=== PATIENT | female | born 1980 | race Caucasian/White ===

== ENCOUNTER 2017-06-16 04:13 | Inpatient (IN) | payer MEDICAID ==
[~2017-06-16] VITALS: Ht 157.5 cm; Wt 75.0 kg
[2017-06-16] VITALS (83 sets, daily range): BP systolic 97–137; BP diastolic 54–92; PULSE 75–138; RESP 18–20; TEMP 97.6–98.6; O2SAT 98–100
[~2017-06-16 04:13] MED LIST: Z.0.NO CURRENT MEDS
[2017-06-16] MEDS ORDERED: SODIUM CHLOR 0.9% 1000 ML INJ 1,000 ML IV ONE (04:30)
[2017-06-16 04:48] LABS: BASOPHIL # 0.2 TH/MM3 (0-0.2); BASOPHIL % 1.9 % (0.0-2.0); EOSINOPHIL % 0.1 % (0.0-4.0); HEMATOCRIT 39.2 % (35.0-46.0); HEMOGLOBIN 13.3 GM/DL (11.6-15.3); LYMPH % 18.2 % (9.0-44.0); MEAN CELL VOLUME 91.9 FL (80.0-100.0); MEAN CORPUSCULAR HEMOGLOBIN 31.2 PG (27.0-34.0); MEAN PLATELET VOLUME 8.6 FL (7.0-11.0); MONOCYTE # 0.6 TH/MM3 (0-0.9); NEUT % 73.8 % (16.0-70.0); PLATELET COUNT 248 TH/MM3 (150-450); RED BLOOD COUNT 4.26 MIL/MM3 (4.00-5.30); RED CELL DISTRIBUTION WIDTH 15.1 % (11.6-17.2); WHITE BLOOD COUNT 10.8 TH/MM3 (4.0-11.0)
[2017-06-16 05:03] LABS: BICARBONATE 19.3 MEQ/L (21.0-32.0); CALCIUM 8.4 MG/DL (8.5-10.1)
--- NOTE | 2017-06-16 05:06 | PD ---
HPI Chief Complaint: Related Problem Time Seen by Provider: 04:25 Travel History International Travel<30 days: No Contact w/Intl Traveler<30days: No Traveled to known affect area: No History of Present Illness HPI 36-year-old female presents to the emergency department for complaint of contractions and bloody show. Patient states that she has not noticed any fluid leak. Patient states that she is 39 weeks with due date 06/19/17. Patient is under the care of Mayra AVILEZ at [facility]. Patient is 4 para 2 AB 1. Patient reports she is O+. Patient has no known allergies and only takes vitamins. Patient states she was awakened at 3 AM with discomfort and shortly thereafter had a contraction. Patient states her contractions now are occurring about every 1-2 minutes. Patient received reports she was seen by her [employer] SUPERVISOR 1 week ago at which time reportedly she was 2 cm dilated. Patient denies any chronic medical problems. Patient denies substance use alcohol use and is taken no medications this evening. Patient has been n.p.o. for approximately 5 hours. Last period was August 2016. [facility] Past Medical History Narrative Medical [id number]; no tobacco; nursing notes reviewed Diminished Hearing: No ?: LMP: 08/31/16 : 2 Para: 1 Miscarriage: 1 Past Surgical History Other Surgery: Yes (BREAST AUGMENTATION) Social History Alcohol Use: Yes (ONCE A WEEK) Tobacco Use: No Substance Use: No Allergies-Medications (Allergen,Severity, Reaction): Coded Allergies: No Known Allergies (Verified Adverse Reaction, Unknown, 06/16/17) PT REFUSES TO ANSWER QUESTIONS ABOUT ALLERGIES Reported Meds & Prescriptions Reported Meds & Active Scripts Active No Active Prescriptions or Reported Medications Review of Systems Except as stated in HPI: all other systems reviewed are Neg Physical Exam Narrative GENERAL: Well-developed well-nourished female in no acute distress no respiratory distress SKIN: Warm and dry. HEAD: Normocephalic. EYES: No scleral icterus. No injection or drainage. NECK: Supple, trachea midline. No JVD or lymphadenopathy. CARDIOVASCULAR: Regular rate and rhythm without murmurs, gallops, or rubs. RESPIRATORY: Breath sounds equal bilaterally. No accessory muscle use. GASTROINTESTINAL: Abdomen soft, non-tender, gravid uterus fundal height 2 fingerbreadths below the diaphragm. Pelvic exam: Normal external exam no redness induration no bimanual exam with sterile gloves dilated 4 cm; FHT: 156 MUSCULOSKELETAL: No cyanosis, or edema. BACK: Nontender without obvious deformity. No CVA tenderness. Data Data Last Documented VS Vital Signs Date Time Temp Pulse Resp B/P (MAP) Pulse Ox O2 Delivery O2 Flow Rate FiO2 06/16/17 04:21 133 18 129/87 (101) 100 Orders Orders Complete Blood Count With Diff (06/16/17 04:25) Basic Metabolic Panel (Bmp) (06/16/17 04:25) Type And Screen (06/16/17 04:25) NPO (06/16/17 04:25) ^ Saline Lock (06/16/17 04:25) Sodium Chlor 0.9% 1000 Ml Inj (Ns 1000 M (06/16/17 04:30) Labs Laboratory Tests Test 06/16/17 04:30 White Blood Count 10.8 TH/MM3 Red Blood Count 4.26 MIL/MM3 Hemoglobin 13.3 GM/DL Hematocrit 39.2 % Mean Corpuscular Volume 91.9 FL Mean Corpuscular Hemoglobin 31.2 PG Mean Corpuscular Hemoglobin Concent 34.0 % Red Cell Distribution Width 15.1 % Platelet Count 248 TH/MM3 Mean Platelet Volume 8.6 FL Neutrophils (%) (Auto) 73.8 % Lymphocytes (%) (Auto) 18.2 % Monocytes (%) (Auto) 6.0 % Eosinophils (%) (Auto) 0.1 % Basophils (%) (Auto) 1.9 % Neutrophils # (Auto) 8.0 TH/MM3 Lymphocytes # (Auto) 2.0 TH/MM3 Monocytes # (Auto) 0.6 TH/MM3 Eosinophils # (Auto) 0.0 TH/MM3 Basophils # (Auto) 0.2 TH/MM3 CBC Comment DIFF FINAL Differential Comment Blood Urea Nitrogen 8 MG/DL Random Glucose 92 MG/DL Calcium Level 8.4 MG/DL Sodium Level 136 MEQ/L Potassium Level 3.7 MEQ/L Chloride Level 106 MEQ/L Carbon Dioxide Level 19.3 MEQ/L Anion Gap 11 MEQ/L MDM Medical Decision Making Medical Screen Exam Complete: Yes Emergency Medical Condition: Yes Medical Record Reviewed: Yes Differential Diagnosis Labor, impending delivery Narrative Course Patient placed on monitor IV access obtained specimens collected and sent for resulting call placed to OB ED Dr. Cho who requests patient be transferred emergently from [facility] directly to [facility] labor and delivery EMS called @ 4:42 water broke; Dr Cho notified; reassessed, dilated 5 cm, contractions q 2 minutes @ 4:51 EMS at bedside @ 4:54 patient exiting with EMS; contractions remain about every 2 minutes; patient denies urge to push; OB notified in route. Physician Communication Physician Communication call placed to Dr Cho Diagnosis Primary Impression: Qualified Codes: Z3A.39 - 39 weeks gestation of Additional Impression: Labor without complication Scripts No Active Prescriptions or Reported Meds Charlotte River MD Jun 16, 2017 05:06
[2017-06-16 05:07] LABS: CREATININE 0.72 MG/DL (0.50-1.00)
[2017-06-16] MEDS ORDERED: fentaNYL 2MCG-BUPIV 0.125% INJ 100 ML ONE (05:32)
[2017-06-16] MEDS ORDERED: ePHEDrine/NS 25 MG/5 ML SYRINGE ONE (05:32)
[2017-06-16] MEDS ORDERED: PREN29TA PO (05:42)
[2017-06-16] MEDS ORDERED: NS 500 ML BOLUS IV PRN (06:15)
[2017-06-16] MEDS ORDERED: NS 1000 ML IV PRN (06:15)
[2017-06-16] MEDS ORDERED: LACTATED RINGER'S 1000 ML IV SCH (06:15)
[2017-06-16] MEDS ORDERED: LACTATED RINGER'S 1000 ML BOLUS IV PRN (06:15)
--- NOTE | 2017-06-16 06:56 | HHI.HP ---
History & Physical H&P HPI Chief Complaint ctxs Date Seen: Jun 16, 2017 Time Seen: 06:44 Travel History International Travel<30 Days: No Contact w/Intl Traveler<30Days: No Known Affected Area: No History of Present Illness HPI pt is a 36 y/o @ 39 4/7 weeks present as a transfer from [place] 2/2 ctxs and srom. pt. states began having ctxs earlier in am and presented to ed. at time pt. states ctxs were 1-2 min apart and getting stronger. when present to ed cervix was 4 cm. pt. have srom at time of tranfer. when present to [place], pt. w/ painful ctxs received epidural and cervix by nursing . Weeks Gestation: 39 Para: 2 : 4 History (Limited) History Past Medical History Medical History: Denies Significant Hx Obstetric History Obstetric History , x 2, 1 sab Past Surgical History Surgical History: No Previous Surgery Family History Family History: Negative Social History Alcohol Use: No Tobacco Use: No Substance Abuse: No Allergies-Medications Allergies-Medications (Allergen,Severity, Reaction): Coded Allergies: No Known Allergies (Verified Allergy, Unknown, 06/16/17) PT REFUSES TO ANSWER QUESTIONS ABOUT ALLERGIES Home Meds Reported Medications Vit-Iron Carbonyl ( Plus Iron 29-1 mg) 29 Mg Iron-1 Mg Tab, 1 TAB PO DAILY for Nutritional Supplement, #30 TAB 0 Refills 06/16/17 ROS Review of Systems Except as stated in HPI: all other systems reviewed are Neg Physical Exam Physical Exam Vital Signs Date Time Temp Pulse Resp B/P (MAP) Pulse Ox O2 Delivery O2 Flow Rate FiO2 06/16/17 06:05 126/76 (93) 06/16/17 05:55 122/68 (86) 06/16/17 05:44 126/88 (101) 06/16/17 04:50 06/16/17 04:46 115 20 124/86 (99) 98 Nasal Cannula 2.00 06/16/17 04:21 133 18 129/87 (101) 100 06/16/17 04:15 116 18 Narrative GENERAL: Well-nourished, well-developed patient. SKIN: Warm and dry. HEAD: Normocephalic and atraumatic. EYES: No scleral icterus. No injection or drainage. ENT: No nasal drainage noted. Mucous membranes pink. Airway patent. NECK: Supple, trachea midline. No JVD. CARDIOVASCULAR: Regular rate and rhythm without murmurs, gallops, or rubs. RESPIRATORY: Breath sounds equal bilaterally. No accessory muscle use. ABDOMEN/GI: Abdomen soft, non-tender, bowel sounds present, no rebound, no guarding Gravid GENITOURINARY: External Genitalia: intact and normal in appearance Cervix: ant Dilatation: 8 Effacement: 90 Station: 0 Presentation: cephalic Membranes: ruptured Uterine Contractions: q2 min FHT's: Category: 1 Reactive: + Variability: mod EXTREMITIES: No cyanosis or edema. BACK: Nontender without obvious deformity. No CVA tenderness. NEUROLOGICAL: Awake and alert. Motor and sensory grossly within normal limits. Five out of 5 muscle strength in all muscle groups. Normal speech. Data Data Data Vital Signs Reviewed: Yes Orders Orders Complete Blood Count With Diff (06/16/17 04:25) Basic Metabolic Panel (Bmp) (06/16/17 04:25) Type And Screen (06/16/17 04:25) NPO (06/16/17 04:25) ^ Saline Lock (06/16/17 04:25) Sodium Chlor 0.9% 1000 Ml Inj (Ns 1000 M (06/16/17 04:30) Ob (2e) Additional Admit Info (06/16/17 05:25) Fentanyl 2mcg-Bupiv 0.125% Inj (Fentanyl (06/16/17 05:32) Ephedrine/Ns 25 Mg/5 Ml Syr (Ephedrine/N (06/16/17 05:32) ^ Place On Chart (06/16/17 ) ^ Medication Indications (06/16/17 ) Consent (06/16/17 ) ^ No Systemic Narcotics (06/16/17 ) ^ Call Anesthesiologist (06/16/17 ) ^ Discontinue Epidural Cathete (06/16/17 ) Anticoagulant Alert (06/16/17 ) ^ Epidural Alert (06/16/17 ) Admit To Inpatient (06/16/17 ) Vital Signs (Adult) .Per protocol (06/16/17 06:07) Heart (06/16/17 06:07) Amnioinfusion (06/16/17 06:07) Urinary Catheter Management .ONCE (06/16/17 06:07) Diet Npo (06/16/17 Breakfast) Urinalysis - C+S If Indicated (06/16/17 06:07) Ob/Psych Drug Screen, Urine (06/16/17 06:07) Resp Oxygen Non Rebreathe Mask (06/16/17 ) ^ Epidural / Intrathecal Infus (06/16/17 06:07) Lactated Ringer's 1000 Ml Inj (Lr 1000 M (06/16/17 06:15) Lactated Ringer's 1000 Ml Inj (Lr 1000 M (06/16/17 06:15) Sodium Chlorid 0.9% 500 Ml Inj (Ns 500 M (06/16/17 06:15) Sodium Chlor 0.9% 1000 Ml Inj (Ns 1000 M (06/16/17 06:15) Group B Strep: Negative Labs Laboratory Tests Test 06/16/17 04:30 White Blood Count 10.8 Red Blood Count 4.26 Hemoglobin 13.3 Hematocrit 39.2 Mean Corpuscular Volume 91.9 Mean Corpuscular Hemoglobin 31.2 Mean Corpuscular Hemoglobin Concent 34.0 Red Cell Distribution Width 15.1 Platelet Count 248 Mean Platelet Volume 8.6 Neutrophils (%) (Auto) 73.8 Lymphocytes (%) (Auto) 18.2 Monocytes (%) (Auto) 6.0 Eosinophils (%) (Auto) 0.1 Basophils (%) (Auto) 1.9 Neutrophils # (Auto) 8.0 Lymphocytes # (Auto) 2.0 Monocytes # (Auto) 0.6 Eosinophils # (Auto) 0.0 Basophils # (Auto) 0.2 CBC Comment DIFF FINAL Differential Comment Blood Urea Nitrogen 8 Creatinine 0.72 Random Glucose 92 Calcium Level 8.4 Sodium Level 136 Potassium Level 3.7 Chloride Level 106 Carbon Dioxide Level 19.3 Anion Gap 11 Estimat Glomerular Filtration Rate 91 MDM MDM Medical Record Reviewed: Yes Plan pt. in active labor. pt. to be admitted. s/p epidural. expect . fht reassuring. Diagnosis Diagnosis: Primary Impression: Qualified Codes: Z3A.39 - 39 weeks gestation of Additional Impression: Labor without complication Alon Cho Jr., MD Jun 16, 2017 06:56
[2017-06-16] MEDS ORDERED: OXYTOCIN 30 UNITS-500ML PREMIX 500 ML ONE (07:17)
[2017-06-16 07:19] LABS: BILIRUBIN, URINE NEG (NEG); BLOOD, URINE MOD (NEG); GLUCOSE,URINE NEG (NEG); KETONE, URINE 150 mg/dL (NEG); MUCUS URINE FEW /lpf (OCC); NITRITE,URINE NEG (NEG); SQUAMOUS EPITHELIAL CELL URINE 3 /hpf (0-5); URINE COLOR YELLOW (YELLW/STRAW); URINE LEUKOCYTE ESTERASE TRACE (NEG)
[2017-06-16] MEDS ORDERED: DO NOT ADMINISTER ANTICOAGULANTS PRN (08:30)
[2017-06-16] MEDS ORDERED: NO SYSTEM NARCOTICS PRN (08:30)
[2017-06-16] MEDS ORDERED: ePHEDrine/NS 25 MG/5 ML SYRINGE IV PUSH PRN (08:30)
[2017-06-16] MEDS ORDERED: fentaNYL 2MCG-BUPIV 0.125% 100 ML EPIDURAL SCH (08:30)
[2017-06-16] MEDS ORDERED: OXYTOCIN 30 UNITS-500ML PREMIX 500 ML IV PRN (08:45)
--- NOTE | 2017-06-16 08:53 | PD.LABORPN ---
Subjective Subjective Ms Diehl cervical check at 8:30AM with 8cm/90%/-1 station; SROM at 04:45AM, clear fluid. FHT reassuring at 135, moderate, variable, no decels; mom is comfortable Objective Vital Signs Vital Signs Date Time Temp Pulse Resp B/P (MAP) Pulse Ox O2 Delivery O2 Flow Rate FiO2 06/16/17 08:45 92 06/16/17 08:40 93 06/16/17 08:35 91 06/16/17 08:30 95 06/16/17 08:30 97 122/86 (98) 06/16/17 08:25 83 06/16/17 08:20 89 06/16/17 08:15 84 06/16/17 08:10 85 06/16/17 08:05 92 06/16/17 08:00 85 18 113/74 (87) 06/16/17 08:00 83 06/16/17 07:55 99 06/16/17 07:50 103 06/16/17 07:45 90 06/16/17 07:45 90 111/74 (86) 06/16/17 07:40 87 06/16/17 07:35 87 06/16/17 07:30 87 06/16/17 07:30 91 112/82 (92) 06/16/17 07:25 90 06/16/17 07:20 79 06/16/17 07:16 102 114/67 (83) 06/16/17 07:15 103 06/16/17 07:10 92 06/16/17 07:05 97 06/16/17 07:00 89 125/84 (98) 06/16/17 07:00 94 06/16/17 06:59 97.6 18 06/16/17 06:55 87 06/16/17 06:50 102 06/16/17 06:45 95 123/78 (93) 06/16/17 06:45 95 06/16/17 06:40 118 06/16/17 06:40 113 110/86 (94) 06/16/17 06:36 101 97/54 (68) 06/16/17 06:35 94 06/16/17 06:30 127 06/16/17 06:30 122 124/92 (103) 06/16/17 06:25 138 06/16/17 06:25 99 121/85 (97) 06/16/17 06:20 129/90 (103) 06/16/17 06:20 103 06/16/17 06:20 89 06/16/17 06:15 113 06/16/17 06:15 102 06/16/17 06:15 137/90 (106) 06/16/17 06:10 100 129/79 (96) 06/16/17 06:10 102 06/16/17 06:05 108 06/16/17 06:05 126/76 (93) 06/16/17 06:05 105 06/16/17 06:00 106 06/16/17 06:00 101 124/68 (86) 06/16/17 05:55 122/68 (86) 06/16/17 05:44 126/88 (101) 06/16/17 04:50 06/16/17 04:46 115 20 124/86 (99) 98 Nasal Cannula 2.00 06/16/17 04:21 133 18 129/87 (101) 100 06/16/17 04:15 116 18 Objective Pelvic Exam: Cervix: open Dilatation: 8cm Effacement: 90% Station: -1 Presentation: vertex Membranes: SROM 0445AM Uterine Contractions: regular 2-3 mins FHT's: Category: 1 Baseline: 135 Reactive: yes Variability: moderate Decels: none Weeks Gestation: 39 Gest Age Assessed Date: Jun 16, 2017 Gest Age Assessed Time: 08:30 Pt started active labor?: Yes Active labor start date: Jun 16, 2017 Active labor start time: 04:45 Medical induction of labor?: No Artificial rupture of membrane: No Assessment/Plan Assessment and Plan 36YO at 39 4/7 weeks presents in active labor, SROM w/clear fluid at 0445AM on 06/16/17; now 8cm/90%/-1 with little progression since epidural placement. Will start pitocin per protocol. FHT 135, variable, moderate, no decels 1. Active labor anticipating -Epidural in place with pain controlled -Start Pitocin @ 2ml/hr, increase 2ml q30min per protocol -Repeat NST q2h Dw Lalito Levy MD R1 Jun 16, 2017 08:53
--- NOTE | 2017-06-16 12:08 | PD.LABORPN ---
Subjective Subjective Ms Fazal cervical check at 11:45AM with 9cm/90%/0station; SROM at 04:45AM, bloody fluid. FHT reassuring at 140, moderate, variable, one late decel when lying on back with plastic push, then one variable decel after; mom repositioned on hands and knees; mom is comfortable Objective Vital Signs Vital Signs Date Time Temp Pulse Resp B/P (MAP) Pulse Ox O2 Delivery O2 Flow Rate FiO2 06/16/17 11:23 98.6 06/16/17 11:19 18 06/16/17 11:19 78 101/57 (72) 06/16/17 10:45 75 06/16/17 10:40 104 06/16/17 10:35 87 06/16/17 10:30 85 06/16/17 10:25 86 06/16/17 10:22 81 18 122/68 (86) 06/16/17 10:20 86 06/16/17 10:15 86 06/16/17 10:10 93 06/16/17 10:05 88 06/16/17 10:00 89 06/16/17 09:55 85 06/16/17 09:50 92 06/16/17 09:45 88 06/16/17 09:40 88 18 115/71 (86) 06/16/17 09:40 82 06/16/17 09:35 94 06/16/17 09:30 88 06/16/17 09:25 105 06/16/17 09:20 93 06/16/17 09:15 87 06/16/17 09:10 92 06/16/17 09:09 95 120/74 (89) 06/16/17 09:05 91 06/16/17 09:00 93 06/16/17 08:55 94 06/16/17 08:53 93 127/80 (96) 06/16/17 08:53 98.0 18 06/16/17 08:50 85 06/16/17 08:45 92 06/16/17 08:40 93 06/16/17 08:35 91 06/16/17 08:30 95 06/16/17 08:30 97 122/86 (98) 06/16/17 08:25 83 06/16/17 08:20 89 06/16/17 08:15 84 06/16/17 08:10 85 06/16/17 08:05 92 06/16/17 08:00 85 18 113/74 (87) 06/16/17 08:00 83 06/16/17 07:55 99 06/16/17 07:50 103 06/16/17 07:45 90 06/16/17 07:45 90 111/74 (86) 06/16/17 07:40 87 06/16/17 07:35 87 06/16/17 07:30 87 06/16/17 07:30 91 112/82 (92) 06/16/17 07:25 90 06/16/17 07:20 79 06/16/17 07:16 102 114/67 (83) 06/16/17 07:15 103 06/16/17 07:10 92 06/16/17 07:05 97 06/16/17 07:00 89 125/84 (98) 06/16/17 07:00 94 06/16/17 06:59 97.6 18 06/16/17 06:55 87 06/16/17 06:50 102 06/16/17 06:45 95 123/78 (93) 06/16/17 06:45 95 06/16/17 06:40 118 06/16/17 06:40 113 110/86 (94) 06/16/17 06:36 101 97/54 (68) 06/16/17 06:35 94 06/16/17 06:30 127 06/16/17 06:30 122 124/92 (103) 06/16/17 06:25 138 06/16/17 06:25 99 121/85 (97) 06/16/17 06:20 129/90 (103) 06/16/17 06:20 103 06/16/17 06:20 89 06/16/17 06:15 113 06/16/17 06:15 102 06/16/17 06:15 137/90 (106) 06/16/17 06:10 100 129/79 (96) 06/16/17 06:10 102 06/16/17 06:05 108 06/16/17 06:05 126/76 (93) 06/16/17 06:05 105 06/16/17 06:00 106 06/16/17 06:00 101 124/68 (86) 06/16/17 05:55 122/68 (86) 06/16/17 05:44 126/88 (101) 06/16/17 04:50 06/16/17 04:46 115 20 124/86 (99) 98 Nasal Cannula 2.00 06/16/17 04:21 133 18 129/87 (101) 100 06/16/17 04:15 116 18 Objective Pelvic Exam: Cervix: open Dilatation: 9cm Effacement: 90% Station: 0 Presentation: vertex Membranes: SROM 0445AM Uterine Contractions: regular 2-3 mins FHT's: Category: 1 Baseline: 140 Reactive: yes Variability: moderate Decels: one late during plastic push in [place] maneuver, followed by one variable Weeks Gestation: 39 Gest Age Assessed Date: Jun 16, 2017 Gest Age Assessed Time: 08:30 Pt started active labor?: Yes Active labor start date: Jun 16, 2017 Active labor start time: 04:45 Medical induction of labor?: No Artificial rupture of membrane: No Assessment/Plan Assessment and Plan 36YO at 39 4/7 weeks presents in active labor, SROM w/clear fluid at 0445AM on 06/16/17; now 9cm/90%/0 on 3ml/hr pitocin. FHT 140, variable, moderate, one late decel during plastic push in [place] followed by one variable decel; mother placed on hands and knees 1. Active labor anticipating -Epidural in place with pain controlled -Pressure cath placed 10:00 -Pitocin @ 3ml/hr -Monitor toco closely -Repeat NST q2h Seen with Lalito Edward MD R1 Jun 16, 2017 12:08
[2017-06-16] MEDS ORDERED: SODIUM CHLORIDE 0.9% FLUSH 10 ML FLUSH IV FLUSH PRN (13:15)
[2017-06-16] MEDS ORDERED: OXYTOCIN 30 UNITS-500ML PREMIX 500 ML IV SCH (13:15)
[2017-06-16] MEDS ORDERED: ALUMINUM/MAGNESIUM/SIMETH 30 ML CUP PO PRN (13:15)
[2017-06-16] MEDS ORDERED: ONDANSETRON ODT 4 MG TAB PO PRN (13:15)
[2017-06-16] MEDS ORDERED: ACETAMINOPHEN 325 MG TAB PO PRN (13:15)
[2017-06-16] MEDS ORDERED: ZOLPIDEM TARTRATE 5 MG TAB PO PRN (13:15)
--- NOTE | 2017-06-16 13:26 | PD.OB.DELI ---
Weeks gestation: 39 Gest age assessed date: Jun 16, 2017 Gest age assessed time: 08:30 Pt started active labor?: Yes Active labor start date: Jun 16, 2017 Active labor start time: 04:45 Medical induction of labor?: No Artificial rupture of membrane: No Anesthesia: Epidural Episiotomy: None Vaginal Delivery: Normal, Spontaneous Presentation: Occiput anterior Nuchal Cord: x1 Delayed cord clamping (45 sec): Yes Infant: Male, Single Delivery date: Jun 16, 2017 Delivery time: 12:49 One Minute : 8 Five Minute : 9 Placenta: Spontaneous delivery, Intact Laceration: Perineal laceration, 2 deg Repair: Chromic running Estimated blood loss: 200cc Additional Information Dr Wells supervised and Dr Izaguirre performed delivery and laceration repair. Lalito Izaguirre MD R1 Jun 16, 2017 13:26
[2017-06-16] MEDS ORDERED: DIPHTH/TETANUS/ACEL PERTUSSIS (BOOSTER) 0.5 ML VIAL/PFS IM ONE (16:00)
[2017-06-16] MEDS ORDERED: MEASLES, MUMPS, RUBELLA VACCINE 0.5 ML VIAL SQ ONE (16:00)
[2017-06-16] MEDS: DOCUSATE SODIUM 50 MG/SENNA 8.6 MG TAB PO PRN (20:08)
[2017-06-16] MEDS: WITCH HAZEL 50%/GLYCERIN 12.5% 40 PAD JAR TOPICAL PRN (20:08)
[2017-06-16] MEDS: IBUPROFEN 800 MG TAB PO PRN (20:08)
[2017-06-16] MEDS: BENZOCAINE 20% TOPICAL SPRAY 60 ML CAN TOPICAL PRN (20:08)
[2017-06-16] MEDS ORDERED: SODIUM CHLORIDE 0.9% FLUSH 10 ML FLUSH IV FLUSH SCH (21:00)
--- NOTE | 2017-06-17 07:30 | HHI.OB ---
Subjective Post Day: 1 Remarks Ms Diehl had no acute events overnight. She was up until 3 AM but slept well after that. Pain is controlled on Motrin and is worsened when she stands. Ambulating w/o dizziness. Tolerating PO w/o w/o nausea. Voiding and stooling. Lochia is the same as a period. Weighing her options about contraception. Objective Vitals/I&O Vital Signs Date Time Temp Pulse Resp B/P (MAP) Pulse Ox O2 Delivery O2 Flow Rate FiO2 06/16/17 14:15 18 06/16/17 14:01 93 113/63 (80) 06/16/17 14:00 18 06/16/17 13:45 82 118/70 (86) 06/16/17 13:41 98.3 18 06/16/17 13:31 91 115/73 (87) 06/16/17 13:18 95 123/74 (90) 06/16/17 13:18 18 06/16/17 12:20 88 06/16/17 12:15 88 06/16/17 12:10 100 06/16/17 12:05 95 06/16/17 12:00 18 06/16/17 11:59 91 111/74 (86) 06/16/17 11:23 98.6 06/16/17 11:19 18 06/16/17 11:19 78 101/57 (72) 06/16/17 10:45 75 06/16/17 10:40 104 06/16/17 10:35 87 06/16/17 10:30 85 06/16/17 10:25 86 06/16/17 10:22 81 18 122/68 (86) 06/16/17 10:20 86 06/16/17 10:15 86 06/16/17 10:10 93 06/16/17 10:05 88 06/16/17 10:00 89 06/16/17 09:55 85 06/16/17 09:50 92 06/16/17 09:45 88 06/16/17 09:40 88 18 115/71 (86) 06/16/17 09:40 82 06/16/17 09:35 94 06/16/17 09:30 88 06/16/17 09:25 105 06/16/17 09:20 93 06/16/17 09:15 87 06/16/17 09:10 92 06/16/17 09:09 95 120/74 (89) 06/16/17 09:05 91 06/16/17 09:00 93 06/16/17 08:55 94 06/16/17 08:53 93 127/80 (96) 06/16/17 08:53 98.0 18 06/16/17 08:50 85 06/16/17 08:45 92 06/16/17 08:40 93 06/16/17 08:35 91 06/16/17 08:30 95 06/16/17 08:30 97 122/86 (98) 06/16/17 08:25 83 06/16/17 08:20 89 06/16/17 08:15 84 06/16/17 08:10 85 06/16/17 08:05 92 06/16/17 08:00 85 18 113/74 (87) 06/16/17 08:00 83 06/16/17 07:55 99 06/16/17 07:50 103 06/16/17 07:45 90 06/16/17 07:45 90 111/74 (86) 06/16/17 07:40 87 06/16/17 07:35 87 06/16/17 07:30 87 06/16/17 07:30 91 112/82 (92) Objective Remarks GENERAL: Well-nourished, well-developed patient lying in bed, a little tearful. CARDIOVASCULAR: Regular rate and rhythm without murmurs, gallops, or rubs. RESPIRATORY: Breath sounds equal bilaterally. No accessory muscle use. ABDOMEN/GI: Abdomen soft, non-tender. Fundus: Firm, non-tender at umbilicus. GENITOURINARY: Light to moderate bleeding. EXTREMITIES: No cyanosis or edema, non-tender, without signs of DVT. Medications and IVs Current Medications Medications (Trade) Dose Ordered Sig/Mario Route Start Time Stop Time Status Last Admin Lactated Ringer's 1,000 ml @ 3,000 mls/hr BOLUS PRN IV 06/16/17 06:15 Sodium Chloride 500 ml @ 1,000 mls/hr BOLUS PRN IV 06/16/17 06:15 Sodium Chloride 1,000 ml @ 100 mls/hr Q10H PRN IV 06/16/17 06:15 Miscellaneous Information No systemic narcotics to be given except... UNSCH PRN .XX 06/16/17 08:30 06/17/17 08:29 Miscellaneous Information DO NOT ADMINISTER ANY ANTICOAGUL... UNSCH PRN .XX 06/16/17 08:30 06/17/17 08:29 Fentanyl/ Bupivacaine HCl 100 ml @ 0 mls/hr TITRATE EPIDURAL 06/16/17 08:30 (ePHEDrine/NS 25 MG/5 ML SYR) 10 mg UNSCH PRN IV PUSH 06/16/17 08:30 06/17/17 08:29 (NS Flush) 2 ml BID IV FLUSH 06/16/17 21:00 (NS Flush) 2 ml UNSCH PRN IV FLUSH 06/16/17 13:15 (Tylenol) 650 mg Q4H PRN PO 06/16/17 13:15 (Motrin) 800 mg Q8H PRN PO 06/16/17 13:15 06/16/17 20:08 (Americaine 20% Top Spr) 1 spray Q4H PRN TOPICAL 06/16/17 13:15 06/16/17 20:08 (Tucks Pads) 1 applic QID PRN TOPICAL 06/16/17 13:15 06/16/17 20:08 (Tia-Colace) 2 tab Q12H PRN PO 06/16/17 13:15 06/16/17 20:08 (Ambien) 5 mg HS PRN PO 06/16/17 13:15 (Mag-Al Plus Susp Liq) 15 ml Q8H PRN PO 06/16/17 13:15 (Zofran Odt) 4 mg Q6H PRN PO 06/16/17 13:15 Assessment/Plan Assessment and Plan 36YO delivered via at 39 4/7 weeks and is PPD#1 today. Pain controlled on motrin, ambulating, taking PO, voiding and stooling. Lochia normal. No concerns. Physical exam benign and VSS. 1. Routine Care -Motrin PRN -Regular diet -Encourage OOB/ambulation -Tia-colace BID -Pt considering contraception options at this time -Pt to f/u with PCP or OB in 6 weeks Pt seen with Dr Jose Gunter - Discharge Planning Likely tomorrow Lalito Izaguirre MD R1 Jun 17, 2017 07:30
[2017-06-17 08:00] VITALS: BP 120/75; PULSE 73; RESP 20; TEMP 98.8
[2017-06-17] MEDS: IBUPROFEN 800 MG TAB PO PRN ×2 (08:11→17:04)
[2017-06-17] MEDS: DOCUSATE SODIUM 50 MG/SENNA 8.6 MG TAB PO PRN (10:56)
[2017-06-17] MEDS: WITCH HAZEL 50%/GLYCERIN 12.5% 40 PAD JAR TOPICAL PRN (13:24)
[2017-06-17 20:35] VITALS: BP 112/72; PULSE 80; RESP 18; TEMP 97.9
[2017-06-18] MEDS: DOCUSATE SODIUM 50 MG/SENNA 8.6 MG TAB PO PRN (00:58)
[2017-06-18] MEDS: IBUPROFEN 800 MG TAB PO PRN ×3 (00:59→18:06)
[2017-06-18] MEDS ORDERED: IBUP1TAB7 PO (07:21)
[2017-06-18] MEDS ORDERED: PERC5TAB12 PO (07:21)
--- NOTE | 2017-06-18 07:22 | HHI.DCPOC ---
Discharge Care Plan Report Symptoms to Your Doctor -Temperature above 100.5 degrees -Redness, of incision or excessive or foul smelling drainage -Unusual pain or calf pain -Increased vaginal bleeding -Painful or difficulty urinating -Feelings of extreme sadness or anxiety after 2 weeks Goals to Promote Your Health * To prevent worsening of your condition and complications, please take pain medications only as needed and not more than prescribed. * To maintain your health at the optimal level, please follow up with your OB doctor in 6 weeks. Directions to Meet Your Goals Take your medications as prescribed Follow your dietary instruction Follow activity as directed Ensure plenty of rest for recovery Drink fluids for hydration Keep your appointments as scheduled Take your immunizations and boosters as scheduled If your symptoms worsen call your PCP, if no PCP go to Urgent Care Center or Emergency Room Smoking is Dangerous to Your Health. Avoid second hand smoke Call the 24-hour crisis hotline for domestic abuse at Lalito Izaguirre MD R1 Jun 18, 2017 07:22
[2017-06-18] MEDS ORDERED: medroxyPROGESTERone ACETATE SUSP 150 MG/ML SYRINGE IM ONE (07:30)
--- NOTE | 2017-06-18 07:31 | HHI.OB ---
Subjective Post Day: 2 Remarks Ms Diehl had no acute events overnight. Pain is controlled on Motrin unless she has to sit up, stand or walk. Ambulating w/o dizziness. Tolerating PO w/o w/ o nausea. Voiding and passing flatus but no BM yet. Lochia is the same as a period. She would like to get depo-provera prior to discharge. Objective Vitals/I&O Vital Signs Date Time Temp Pulse Resp B/P (MAP) Pulse Ox O2 Delivery O2 Flow Rate FiO2 06/17/17 20:35 97.9 80 18 112/72 (85) 06/17/17 08:00 98.8 73 20 120/75 (90) Objective Remarks GENERAL: Well-nourished, well-developed patient lying in bed. CARDIOVASCULAR: Regular rate and rhythm without murmurs, gallops, or rubs. RESPIRATORY: Breath sounds equal bilaterally. No accessory muscle use. ABDOMEN/GI: Abdomen soft, non-tender. Fundus: Firm, non-tender at umbilicus. GENITOURINARY: Light to moderate bleeding. EXTREMITIES: No cyanosis or edema, non-tender, without signs of DVT. Medications and IVs Current Medications Medications (Trade) Dose Ordered Sig/Mario Route Start Time Stop Time Status Last Admin Lactated Ringer's 1,000 ml @ 3,000 mls/hr BOLUS PRN IV 06/16/17 06:15 Sodium Chloride 500 ml @ 1,000 mls/hr BOLUS PRN IV 06/16/17 06:15 Sodium Chloride 1,000 ml @ 100 mls/hr Q10H PRN IV 06/16/17 06:15 Fentanyl/ Bupivacaine HCl 100 ml @ 0 mls/hr TITRATE EPIDURAL 06/16/17 08:30 (NS Flush) 2 ml BID IV FLUSH 06/16/17 21:00 (NS Flush) 2 ml UNSCH PRN IV FLUSH 06/16/17 13:15 (Tylenol) 650 mg Q4H PRN PO 06/16/17 13:15 (Motrin) 800 mg Q8H PRN PO 06/16/17 13:15 06/18/17 00:59 (Americaine 20% Top Spr) 1 spray Q4H PRN TOPICAL 06/16/17 13:15 06/16/17 20:08 (Tucks Pads) 1 applic QID PRN TOPICAL 06/16/17 13:15 06/17/17 13:24 (Tia-Colace) 2 tab Q12H PRN PO 06/16/17 13:15 06/18/17 00:58 (Ambien) 5 mg HS PRN PO 06/16/17 13:15 (Mag-Al Plus Susp Liq) 15 ml Q8H PRN PO 06/16/17 13:15 (Zofran Odt) 4 mg Q6H PRN PO 06/16/17 13:15 Assessment/Plan Assessment and Plan [id number] delivered via at 39 4/7 weeks and is PPD#2 today. Pain partially controlled on motrin, ambulating, taking PO, voiding and passing flatus. Lochia normal. No concerns. Physical exam benign and VSS. 1. Routine Care -Motrin PRN --Discharge with PRN Motrin and short course of Percocet 5-325 for pain -Regular diet -Encourage OOB/ambulation -Tia-colace BID -Pt wants Depo-provera injection prior to discharge -Pt to f/u with PCP / OB in [address] Jose Gunter - Discharge Planning Today Lalito Izaguirre MD R1 Jun 18, 2017 07:30
[2017-06-18 08:00] VITALS: BP 101/62; PULSE 65; RESP 18; TEMP 98
[2017-06-18] MEDS ORDERED: IBUP-232 PO (08:30)
[2017-06-18] MEDS ORDERED: TYLE325T PO (08:30)
[2017-06-18] MEDS: BENZOCAINE 20% TOPICAL SPRAY 60 ML CAN TOPICAL PRN (12:00)
[2017-06-19] MEDS ORDERED: IBUP-232 PO (15:57)
[2017-06-19] MEDS ORDERED: TYLE325T PO (15:57)
== END 2017-06-18 19:29 | disposition home or self-care (01) | DRG 775 ==
LOC: PHED 04:13 → H2EB 05:26 → H1EA 15:12
PROVIDERS: ADMIT Obstetrics & Gynecology; ATTEND Obstetrics & Gynecology
PROC: 10E0XZZ Delivery of Products of Conception, External Approach (ICD-10-PCS; principal; 2017-06-16)
PROC: 0KQM0ZZ Repair Perineum Muscle, Open Approach (ICD-10-PCS; 2017-06-16)
PROC: 3E0R3BZ Introduction of Anesthetic Agent into Spinal Canal, Percutaneous Approach (ICD-10-PCS; 2017-06-16)
PROC: 00HU33Z Insertion of Infusion Device into Spinal Canal, Percutaneous Approach (ICD-10-PCS; 2017-06-16)
DX: O70.1 Second degree perineal laceration during delivery (principal); Z37.0 Single live birth; Z3A.39 39 weeks gestation of pregnancy; Z98.82 Breast implant status
CPT/HCPCS: 80048; 80307; 81001; 85025; 86850; 86900; 86901; 90715; 99285; G0481; J1050; J2590; J7030; J7120